=== PATIENT | female | born 1995 | race Caucasian/White ===

== ENCOUNTER → 2023-09-25 15:04 | Outpatient (CLI) | payer OTHER, SELFPAY ==
--- NOTE | 2023-09-25 15:05 | DI.US.S_ITS ---
PROCEDURE: US OB <= 14 WEEKS FETUS INDICATIONS: SIZE AND DATES OUTSIDE/PRIOR DATING DATA: Last menstrual period (LMP): 08/05/2023 LMP-based estimated date of delivery (STEFANY): 05/11/2024 First dating scan (date and location): 09/25/2023 Estimated date of delivery (STEFANY) from first dating scan: 05/18/2024 TECHNIQUE: Real-time scanning was performed of the fetus and maternal pelvic organs, with image documentation. COMPARISON: None. FINDINGS: Intrauterine gestational sac is seen with yolk sac but no definite pole. Mean gestational sac diameter is 1.5 cm, consistent with an estimated gestational age of 6 weeks 2 days. Maternal organs: Right ovarian corpus luteal cyst. IMPRESSION: Intrauterine gestational sac is seen with yolk sac but no pole. Findings may be secondary to normal early versus early failure. Recommend correlation with clinical findings, serial beta HCG measurements, and follow-up ultrasound. Approved by: Felipe Carrillo M.D. on 09/25/2023 at 21:51
== END ==
PROVIDERS: PCP Student in an Organized Health Care Education/Training Program; Referring Provider Student in an Organized Health Care Education/Training Program; Visit Provider Student in an Organized Health Care Education/Training Program
DX: O36.80X0 Pregnancy with inconclusive fetal viability, not applicable or unspecified; Z3A.01 Less than 8 weeks gestation of pregnancy
CPT/HCPCS: 76801; 76817

== ENCOUNTER → 2023-10-17 08:34 | Outpatient (CLI) | payer OTHER, SELFPAY ==
--- NOTE | 2023-10-17 08:35 | DI.US.S_ITS ---
PROCEDURE: US OB <= 14 WEEKS FETUS INDICATIONS: Repeat Fetual US OUTSIDE/PRIOR DATING DATA: Last menstrual period (LMP): 08/05/2024 LMP-based estimated date of delivery (STEFANY): 05/11/2024 First dating scan (date and location): 10/17/2023 Estimated date of delivery (STEFANY) from first dating scan: 05/21/2024 TECHNIQUE: Real-time scanning was performed of the fetus and maternal pelvic organs, with image documentation. COMPARISON: [facility], OB <= 14 WEEKS FETUS, 09/25/2023, 15:52. FINDINGS: Embryo: Single intrauterine gestation is seen with fetus and yolk sac seen. [place]-rump length measures 2.3 cm. Estimated gestational age based on current study is 9 weeks, 0 day. Estimated gestational age based on last menstrual period is 10 weeks, 3 days. Heart rate: 160 beats per minute. Small perigestational hematoma is seen inferior to the gestational sac and measures 0.9 x 1.5 x 0.9 cm in size. Maternal organs: Ovaries are not well seen. IMPRESSION: 1. Single live intrauterine gestation with fetus and yolk sac seen. heart rate is 160 beats per minute. Estimated gestational age based on current study is 9 weeks, 0 days. 2. Small perigestational hematoma as above. We strive to produce accurate, complete, and clear reports of imaging services. To assist us in improving patient care, this report was composed using standard report templates and voice recognition software. Therefore, it may contain abnormal punctuation, insertions and/or omissions. Occasional wrong-word or sound-alike substitutions may occur. Though we review the report and make efforts to correct it, we do recommend that the report be read carefully in proper context to recognize any text inaccuracies. Dictated by: Roberto House M.D. on 10/17/2023 at 11:59 Approved by: Roberto House M.D. on 10/17/2023 at 12:27
== END ==
LOC: US 08:35
PROVIDERS: PCP Student in an Organized Health Care Education/Training Program; Referring Provider Student in an Organized Health Care Education/Training Program; Visit Provider Student in an Organized Health Care Education/Training Program
DX: O46.8X1 Other antepartum hemorrhage, first trimester (principal); Z3A.09 9 weeks gestation of pregnancy
CPT/HCPCS: 76801; 76817

== ENCOUNTER → 2023-10-24 14:45 | Outpatient (CLI) | payer OTHER, SELFPAY ==
[2023-10-24 15:08] LABS: Miscellaneous to LabCorp NATERA KIT
[2023-10-24 15:43] LABS: Appearance Urine UA CLEAR; Bilirubin Urine UA NEGATIVE (NEGATIVE); Color Urine UA YELLOW; Glucose Urine UA NEGATIVE (Negative); Ketones Urine UA NEGATIVE (NEGATIVE); Leukocyte Esterase Urine UA NEGATIVE (NEGATIVE); Nitrite Urine UA NEGATIVE (Negative); Occult Blood Urine UA NEGATIVE (Negative); Protein Urine UA NEGATIVE (Negative); Specific Gravity Urine UA 1.025 (1.000-1.035); Urobilinogen Urine UA 0.2 E.U./dL (0.2)
[2023-10-24 16:29] LABS: Add Manual Diff / Slide Review NO; Basophils Absolute Auto 0 /uL (0-100); Basophils Percent Auto 0.5 % (0-2); Eosinophils Absolute Auto 100 /uL (0-450); Eosinophils Percent Auto 1.2 % (2-4); Hematocrit 40.2 % (36-46); Hemoglobin 13.8 g/dL (12.0-16.0); Lymphocytes Absolute Auto 2200 /uL (1100-4500); Lymphocytes Percent Auto 25.7 % (25-40); Mean Corpuscular HGB Conc 34.3 % (30-36); Mean Corpuscular Hemoglobin 29.3 PG (26-34); Mean Corpuscular Volume 85.3 fL (80-100); Monocytes Absolute Auto 600 /uL (0-900); Monocytes Percent Auto 7.1 % (3-14); Neutrophils Absolute Auto 5700 /uL (1500-7000); Neutrophils Percent Auto 65.5 % (50-75); Platelet Count 245 X10^3/uL (150-400); Red Blood Cell Count 4.71 X10^6/uL (4.0-5.2); Red Cell Distribution Width 12.9 % (11.6-14.8); White Blood Cell Count 8.7 X10^3/uL (4.5-11.0)
[2023-10-25 05:51] LABS: RPR Screen Non Reactive (Non Reactive)
[2023-10-25 09:17] LABS: Varicella IgG Antibody <135 index (Immune >165)
[2023-10-26 15:53] LABS: Hepatitis B Surface Antigen NEGATIVE s/c (NEGATIVE); Rubella Antibody IgG 13.9 IU/mL (>15)
[2023-10-26 16:11] LABS: HIV 1 & 2 Ab/Ag 4th Gen Combo NEGATIVE (NEGATIVE); Hep C Virus Ab w/Reflex Quant NEGATIVE s/c (NEGATIVE)
== END ==
PROVIDERS: PCP Student in an Organized Health Care Education/Training Program; Referring Provider Student in an Organized Health Care Education/Training Program; Visit Provider Student in an Organized Health Care Education/Training Program
DX: Z34.80 Encounter for supervision of other normal pregnancy, unspecified trimester (principal); Z13.79 Encounter for other screening for genetic and chromosomal anomalies; Z31.438 Encounter for other genetic testing of female for procreative management; Z36.0 Encounter for antenatal screening for chromosomal anomalies
CPT/HCPCS: 36415; 80055; 81003; 86787; 86803; 86850; 86900; 86901; 87086; 87389